=== PATIENT | male | born 1950 | race Caucasian/White ===

== ENCOUNTER 2018-08-19 07:08 | Day surgery (SDC) | payer MEDICARE, BC ==
[2018-08-19] MEDS ORDERED: fentaNYL 100 MCG/2 ML SDV ONE (07:23)
[2018-08-19] MEDS ORDERED: Midazolam 1 MG/ML 2 ML SDV ONE (07:23)
[2018-08-19] MEDS ORDERED: Propofol 200 MG/20 ML SDV ONE (07:23)
[2018-08-19] MEDS ORDERED: Sodium Chloride 0.9% 1,000 ML IV SCH (07:45)
--- NOTE | 2018-08-19 11:58 | OR ---
DATE OF PROCEDURE: 08/19/2018 SURGEON: Vikram Valdez MD PROCEDURE: Colonoscopy. FINDINGS: 1. Sigmoid colon polyp, approximately 8 mm, removed using snare. 2. Diverticulosis, mild. PREOPERATIVE DIAGNOSIS: History of colon polyps/screening. POSTOPERATIVE DIAGNOSIS: History of colon polyps/screening. RISKS: Risks, benefits, alternatives, and limitations including, but not limited to infection, bleeding, perforation were explained to the patient and wished to proceed. PROCEDURE IN DETAIL: The patient was placed in a left lateral decubitus position. Digital rectal exam was performed without abnormality. The scope was introduced and advanced atraumatically to the ileocecal valve. The scope was brought back through the ascending, transverse, descending colon, and retroflexed. The aforementioned polyp was completely removed using a snare. No abnormal bleeding was noted after this. The diverticulosis would be described as mild, limited to sigmoid colon, and no other abnormalities noted. The patient tolerated the procedure well. Vikram Valdez MD /[id number]
== END 2018-08-19 10:20 | disposition home or self-care (01) ==
LOC: JP.SDS 07:08
PROVIDERS: ATTEND Surgery
DX: Z12.11 Encounter for screening for malignant neoplasm of colon (principal); K51.40 Inflammatory polyps of colon without complications; K57.30 Diverticulosis of large intestine without perforation or abscess without bleeding; Z86.010 Personal history of colon polyps; G47.30 Sleep apnea, unspecified; G20 Parkinson's disease; I10 Essential (primary) hypertension; E11.9 Type 2 diabetes mellitus without complications; Z88.4 Allergy status to anesthetic agent; Z79.82 Long term (current) use of aspirin
CPT/HCPCS: 45385; J2250; J2704; J3010; J7030

== ENCOUNTER 2022-04-16 08:22 | Emergency (ER) | payer MEDICARE, BC ==
[2022-04-16] MEDS ORDERED: fentaNYL 50 MCG/ML SDV IVPUSH ONE (09:37)
[2022-04-16] MEDS ORDERED: Ketorolac 30 MG/ML SDV IVPUSH ONE (09:37)
[2022-04-16 09:52] LABS: ESTIMATED GFR 72 mL/min (>60)
== END 2022-04-16 10:39 | disposition home or self-care (01) ==
LOC: JP.ED 08:22
DX: G43.909 Migraine, unspecified, not intractable, without status migrainosus (principal); I10 Essential (primary) hypertension; E11.9 Type 2 diabetes mellitus without complications; E66.9 Obesity, unspecified; Z68.30 Body mass index [BMI] 30.0-30.9, adult; Z88.8 Allergy status to other drugs, medicaments and biological substances; Z79.899 Other long term (current) drug therapy
CPT/HCPCS: 36415; 70450; 70450-26; 80053; 84443; 85025; 96374; 96375; 99284-25; J1885; J3010

== ENCOUNTER 2022-05-06 12:08 | Emergency (ER) | payer MEDICARE, BC | END 2022-05-06 14:42 | disposition home or self-care (01) | LOC: JP.ED 12:08 | DX: R60.0 Localized edema (principal); I10 Essential (primary) hypertension; E11.9 Type 2 diabetes mellitus without complications; E03.9 Hypothyroidism, unspecified; E66.9 Obesity, unspecified; Z68.41 Body mass index [BMI] 40.0-44.9, adult; Z88.8 Allergy status to other drugs, medicaments and biological substances; Z79.899 Other long term (current) drug therapy | CPT/HCPCS: 93971-26; 93971-RT; 99283 ==

== ENCOUNTER 2024-01-27 06:39 | Day surgery (SDC) | payer MEDICARE, BC ==
[2024-01-27] MEDS ORDERED: Bupivacaine 0.5% 50 ML MDV ONE (06:52)
[2024-01-27] MEDS ORDERED: ceFAZolin 2 GM in Premix Bag 1 BAG IV ONE (07:00)
[2024-01-27] MEDS: Lactated Ringers 1,000 ML IV SCH (07:01)
[2024-01-27 07:05] LABS: HEMATOCRIT 40.3 % (38.4-49.7); HEMOGLOBIN 13.1 g/dL (12.9-16.9); MEAN CORPUSCULAR HEMOGLOBIN 29.9 pg (31.6-35.5); MEAN CORPUSCULAR HGB CONC 32.5 g/dL (31.6-35.5); RED BLOOD CELL COUNT 4.38 M/uL (4.14-5.76); WHITE BLOOD CELL COUNT,WBC 8.2 K/uL (3.2-11.0)
[2024-01-27] MEDS ORDERED: Glycopyrrolate 0.2 MG/ML 5 ML MDV ONE (07:25)
[2024-01-27] MEDS ORDERED: Neostigmine Methylsulfate 10 MG/10 ML MDV ONE (07:25)
[2024-01-27] MEDS ORDERED: Ondansetron 4 MG/2 ML SDV ONE (07:25)
[2024-01-27] MEDS ORDERED: fentaNYL 250 MCG/5 ML SDV ONE (07:25)
[2024-01-27] MEDS ORDERED: Rocuronium 50 MG/5 ML Vial ONE (07:25)
[2024-01-27] MEDS ORDERED: Propofol 200 MG/20 ML SDV ONE (07:25)
[2024-01-27] MEDS ORDERED: Dexamethasone 4 MG/ML SDV ONE (07:25)
[2024-01-27 07:39] LABS: A/G RATIO 1.2 (1.2-2.2); ALANINE AMINOTRANSFERASE,ALT 24 U/L (12-78); ALBUMIN 3.9 g/dL (3.4-5.0); ALKALINE PHOSPHATASE 94 U/L (46-116); ANION GAP 9.1 mmol/L (5.0-14.0); ASPARTATE AMNIOTRANSFERASE,AST 20 U/L (15-37); BILIRUBIN TOTAL 0.6 mg/dL (0.2-1.0); BLOOD UREA NITROGEN,BUN 25 mg/dL (7-18); CALCIUM 9.7 mg/dL (8.5-10.1); CARBON DIOXIDE,CO2 28 mmol/L (21-32); CHLORIDE,CL 103 mmol/L (100-108); CREATININE 1.3 mg/dL (0.8-1.3); EST CRCL DRUG DOSING (CG) 51.36 mL/min; ESTIMATED GFR 58 mL/min (>60); GLUCOSE RANDOM 112 mg/dL (74-106); POTASSIUM,K 4.7 mmol/L (3.6-5.2); PROTEIN TOTAL,TP 7.2 g/dL (6.4-8.2); SODIUM,NA 140 mmol/L (140-148)
[2024-01-27] MEDS: metroNIDAZOLE/Normal Saline 500 MG in Premix Bag 1 BAG IV ONE (07:45)
[2024-01-27] MEDS: ceFAZolin 2 GM in Sodium Chloride 0.9% 50 ML IV ONE (08:15)
[2024-01-27] MEDS: Bupivacaine 0.5%/EPINEPHrine 1:200,000 50 ML MDV ONE (08:35)
[2024-01-27] MEDS ORDERED: fentaNYL 100 MCG/2 ML SDV ONE ×2 (09:03→09:41)
[2024-01-27] MEDS ORDERED: Lactated Ringers 1,000 ML ONE (09:25)
[2024-01-27] MEDS: Acetaminophen/HYDROcodone 325-5 MG Tab PO ONE (11:07)
== END 2024-01-27 12:20 | disposition home or self-care (01) ==
LOC: JP.SDS 06:39
PROVIDERS: ATTEND Surgery
DX: K43.6 Other and unspecified ventral hernia with obstruction, without gangrene (principal); I12.9 Hypertensive chronic kidney disease with stage 1 through stage 4 chronic kidney disease, or unspecified chronic kidney disease; E11.22 Type 2 diabetes mellitus with diabetic chronic kidney disease; N18.31 Chronic kidney disease, stage 3a; Z79.899 Other long term (current) drug therapy
CPT/HCPCS: 00840; 36415; 49594; 80053; 82947; 85027; A9270; C1781; J0171; J0690; J1100; J1596; J1836; J2405; J2704; J2710; J2795; J3010; J3490; J7120; J0665

== ENCOUNTER 2024-09-16 17:27 | Emergency (ER) | payer MEDICARE, BC | END 2024-09-16 20:10 | disposition home or self-care (01) | LOC: JP.ED 17:27 | DX: H53.2 Diplopia (principal); I10 Essential (primary) hypertension; E11.9 Type 2 diabetes mellitus without complications; E03.9 Hypothyroidism, unspecified; E66.9 Obesity, unspecified; Z79.899 Other long term (current) drug therapy; Z88.8 Allergy status to other drugs, medicaments and biological substances; Z68.39 Body mass index [BMI] 39.0-39.9, adult | CPT/HCPCS: 99284 ==

== ENCOUNTER 2024-11-06 09:22 | Emergency (ER) | payer MEDICARE, BC ==
[2024-11-06] MEDS: Diphtheria,Pertussis(Acell),Tetanus Vaccine 0.5 ML Syringe IM ONE (14:58)
== END 2024-11-06 15:08 | disposition home or self-care (01) ==
LOC: JP.ED 09:22
DX: S61.313A Laceration without foreign body of left middle finger with damage to nail, initial encounter (principal); S61.311A Laceration without foreign body of left index finger with damage to nail, initial encounter; Z23 Encounter for immunization; I10 Essential (primary) hypertension; E66.9 Obesity, unspecified; E11.9 Type 2 diabetes mellitus without complications; E03.9 Hypothyroidism, unspecified; Z68.38 Body mass index [BMI] 38.0-38.9, adult; Z88.8 Allergy status to other drugs, medicaments and biological substances; Z79.890 Hormone replacement therapy; Z79.899 Other long term (current) drug therapy; W27.0XXA Contact with workbench tool, initial encounter
CPT/HCPCS: 64450; 73140-26-F1; 73140-F1; 90471; 90715; 99282; 99284-25; A4217; J2003

== ENCOUNTER 2025-01-02 12:07 | Emergency (ER) | payer MEDICARE, BC ==
[2025-01-02 13:06] LABS: BASOPHILS ABSOLUTE AUTO 0.05 K/uL (0.00-0.10); BASOPHILS PERCENT AUTO 0.5 % (0.1-1.3); EOSINOPHILS ABSOLUTE AUTO 0.41 K/uL (0.00-0.40); EOSINOPHILS PERCENT AUTO 3.9 % (0.0-5.4); IMMATURE GRAN ABSOLUTE AUTO 0.24 K/uL (0.00-0.23); IMMATURE GRAN PERCENT AUTO 2.3 % (0.0-0.7); LYMPHOCYTES ABSOLUTE AUTO 1.98 K/uL (0.8-3.3); LYMPHOCYTES PERCENT AUTO 18.7 % (11.4-47.7); MONOCYTES ABSOLUTE AUTO 0.65 K/uL (0.20-0.90); MONOCYTES PERCENT AUTO 6.1 % (3.3-12.6); NEUTROPHILS ABSOLUTE AUTO 7.26 K/uL (1.0-7.6); NEUTROPHILS PERCENT AUTO 68.5 % (40.0-78.1); PLATELET COUNT,PLT 246 K/uL (130-375); RED BLOOD CELL COUNT 3.97 M/uL (4.14-5.76); WHITE BLOOD CELL COUNT,WBC 10.6 K/uL (3.2-11.0)
[2025-01-02 13:27] LABS: A/G RATIO 1.1 (1.2-2.2); ALANINE AMINOTRANSFERASE,ALT 22 U/L (12-78); ASPARTATE AMNIOTRANSFERASE,AST 17 U/L (15-37); BILIRUBIN TOTAL 0.4 mg/dL (0.2-1.0); BLOOD UREA NITROGEN,BUN 18 mg/dL (7-18); CARBON DIOXIDE,CO2 28 mmol/L (21-32); CHLORIDE,CL 106 mmol/L (100-108); CREATININE 1.2 mg/dL (0.8-1.3); EST CRCL DRUG DOSING (CG) 51.00 mL/min; ESTIMATED GFR 64 mL/min (>60); GLUCOSE RANDOM 95 mg/dL (74-106); POTASSIUM,K 4.1 mmol/L (3.6-5.2); PROTEIN TOTAL,TP 6.1 g/dL (6.4-8.2); SODIUM,NA 139 mmol/L (140-148)
[2025-01-02 13:28] LABS: INR 1.0
== END 2025-01-02 14:26 | disposition home or self-care (01) ==
LOC: JP.ED 12:07
DX: R04.0 Epistaxis (principal); I10 Essential (primary) hypertension; E11.9 Type 2 diabetes mellitus without complications; E03.9 Hypothyroidism, unspecified; E66.9 Obesity, unspecified; M19.90 Unspecified osteoarthritis, unspecified site; Z79.899 Other long term (current) drug therapy; Z79.890 Hormone replacement therapy; Z88.8 Allergy status to other drugs, medicaments and biological substances; Z68.22 Body mass index [BMI] 22.0-22.9, adult
CPT/HCPCS: 36415; 80053; 85025; 85610; 99283